=== PATIENT | male | born 1980 | race Hispanic/Latino ===

== ENCOUNTER 2018-10-24 18:02 | Emergency (ER) | payer OTHER ==
[2018-10-24 18:13] VITALS: TEMP 98.1
[2018-10-24] MEDS ORDERED: Sodium Chloride 0.9% 1,000 ML IV STA (20:25)
[2018-10-24 20:51] LABS: BASO # 0.1 K/uL (0.0-0.2); BASO % 0.8 % (0.0-2.0); EOS # 0.1 K/uL (0.0-0.7); EOS % 1.3 % (0.0-4.0); HEMOGLOBIN 15.5 g/dL (12.0-18.0); LYMPH # 2.1 K/uL (1.0-4.3); MEAN CORPUSCULAR HEMOGLOBIN 27.3 pg (27.0-31.0); MEAN CORPUSCULAR HGB CONC 34.6 g/dL (33.0-37.0); MEAN PLATELET VOLUME 7.4 fl (7.2-11.7); MONO # 0.3 K/uL (0.0-0.8); MONO % 3.6 % (0.0-10.0); NEUT # 5.4 K/uL (1.8-7.0); NEUT % 68.3 % (50.0-75.0); RBC 5.67 Mil/uL (4.40-5.90); RED CELL DISTRIBUTION WIDTH 15.9 % (11.5-14.5); WHITE BLOOD COUNT 7.9 K/uL (4.8-10.8)
[2018-10-24 21:11] LABS: ALB/GLOB RATIO 1.2 (1.0-2.1); ALBUMIN 4.9 g/dL (3.5-5.0); ALT/SGPT 39 U/L (21-72); AST/SGOT 40 U/L (17-59); BLOOD UREA NITROGEN 19 mg/dl (9-20); CALCIUM 9.3 mg/dL (8.4-10.2); GFR NON-AFRICAN AMERICAN > 60
[2018-10-24 21:17] LABS: BARBITURATES, UR NEGATIVE (NEGATIVE); BENZODIAZEPINES, UR NEGATIVE (NEGATIVE); OPIATES, UR NEGATIVE (NEGATIVE); PHENCYCLIDINE, UR NEGATIVE (NEGATIVE)
--- NOTE | 2018-10-24 22:12 | ED PDOC ---
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 In ED, pt reports he had an argument with his and was out drinking, but is unsure how he got here. Denies drug use, but does report some shakiness. Otherwise, patient is a poor historian and not reliable secondary to his intoxication. PMD: Dr. Munoz Past Medical History Reviewed: Historical Data, Nursing Documentation, Vital Signs Vital Signs: Last Vital Signs Temp 98.1 F 10/24/18 18:12 Pulse 80 10/24/18 18:12 Resp 18 10/24/18 18:12 BP 178/112 H 10/24/18 18:12 Pulse Ox 97 10/24/18 18:12 - Medical History PMH: HTN - Surgical History Other surgeries: Right foot surgery - Family History Family History: States: Unknown Family Hx - Social History Current smoker - smoking cessation education provided: No Alcohol: Social Drugs: Denies - Immunization History Hx Tetanus Toxoid Vaccination: Yes Hx Influenza Vaccination: Yes Hx Pneumococcal Vaccination: Yes - Home Medications Home Medications: Ambulatory Orders Medication Instructions Recorded [id number] [Chlordiazepoxide 25 mg PO Q6 PRN #10 cap 10/24/18 HCl] - Allergies Allergies/Adverse Reactions: Allergies Allergy/AdvReac Type Severity Reaction Status Date / Time No Known Allergies Allergy Verified 10/24/18 18:12 Review of Systems ROS Statement: Except As Marked, All Systems Reviewed And Found Negative (as per HPI) Constitutional: Positive for: Weakness (generalized) Musculoskeletal: Positive for: Foot Pain (left) Neurological: Positive for: Confusion Psych: Positive for: Anxiety Physical Exam - Reviewed Nursing Documentation Reviewed: Yes Vital Signs Reviewed: Yes - Physical Exam Appears: Positive for: No Acute Distress (but intoxicated appearing) Eye Exam: Positive for: Conjunctival injection (bilateral) ENT: Positive for: Other (tacky mucous membranes) Extremity: Positive for: Other (left lower extremity in a large splint and agnes wrap) Neurologic/Psych: Positive for: Mood/Affect (anxious), Aphasia (mild), Other (slightly slurred speech). Negative for: Motor/Sensory Deficits - Laboratory Results Result Diagrams: 10/24/18 20:49 10/24/18 20:49 Lab Results: Total Bilirubin 0.4 mg/dl (0.2-1.3) 10/24/18 20:49 AST 40 U/L (17-59) 10/24/18 20:49 ALT 39 U/L (21-72) 10/24/18 20:49 Alkaline Phosphatase 116 U/L (38-126) 10/24/18 20:49 Total Protein 8.8 G/DL (6.3-8.2) H 10/24/18 20:49 Albumin 4.9 g/dL (3.5-5.0) 10/24/18 20:49 Globulin 4.0 gm/dL (2.2-3.9) H 10/24/18 20:49 Albumin/Globulin Ratio 1.2 (1.0-2.1) 10/24/18 20:49 - ECG O2 Sat by Pulse Oximetry: 97 (RA) Pulse Ox Interpretation: Normal Medical Decision Making Medical Decision Making: Time: 2024 Initial Impression: alcohol intoxication Initial Plan: --Alcohol serum --CMP --Drug screen --Magnesium chemistry --Phosphorus chemistry --U-dip --CBC with differential --Normal saline IV --Librium 50mg PO Scribe Attestation: Documented by Renuka Leyva acting as a scribe for Chiara Chu MD. Provider Scribe Attestation: All medical record entries made by the Scribe were at my direction and personally dictated by me. I have reviewed the chart and agree that the record accurately reflects my personal performance of the history, physical exam, medical decision making, and the department course for this patient. I have also personally directed, reviewed, and agree with the discharge instructions and disposition. Disposition - Disposition
[2018-10-24 22:29] VITALS: BP 142/88; PULSE 86; RESP 20; O2SAT 100
== END 2018-10-24 22:27 | disposition home or self-care (01) ==
LOC: H.ER 18:02
DX: F10.129 Alcohol abuse with intoxication, unspecified (principal); I10 Essential (primary) hypertension; Y90.8 Blood alcohol level of 240 mg/100 ml or more
CPT/HCPCS: 80053; 80320; 80324; 80345; 80346; 80349; 80353; 80358; 80361; 82948; 83735; 83992; 84100; 85025; 96360; 99283; J7030